=== PATIENT | female | born 1990 | race African-American/Black ===

== ENCOUNTER 2016-06-18 22:49 | Observation (INO) | payer MEDICAID ==
[~2016-06-18] VITALS: Ht 162.6 cm; Wt 54.4 kg
[~2016-06-18 22:49] MED LIST: TRAM100T14 PO
[2016-06-18] MEDS ORDERED: PREN-88 PO (23:37)
[2016-06-18] MEDS ORDERED: ACETAMINOPHEN 325MG TABLET PO NR (23:45)
[2016-06-19 00:55] LABS: CLARITY URINE TURBID (CLEAR); COLOR URINE YELLOW (YELLOW); GLUCOSE URINE NEGATIVE (NEGATIVE); KETONES URINE 1+ (NEGATIVE); LEUKOCYTE ESTERASE URINE 2+ (NEGATIVE); NITRITE URINE NEGATIVE (NEGATIVE); OCCULT BLOOD URINE NEGATIVE (NEGATIVE); PROTEIN URINE NEGATIVE (NEGATIVE); SPECIFIC GRAVITY URINE 1.013 (1.005-1.030)
[2016-06-19 01:17] LABS: *AMPHETAMINES SCREEN URINE NEGATIVE (NEGATIVE); *BARBITURATES SCREEN URINE NEGATIVE (NEGATIVE); *BENZODIAZEPINES SCREEN URINE NEGATIVE (NEGATIVE); *COCAINE SCREEN URINE NEGATIVE (NEGATIVE); CANNABINOID URINE SCREEN NEGATIVE (NEGATIVE); ECSTASY MDMA SCREEN URINE NEGATIVE (NEGATIVE); METHADONE URINE SCREEN NEGATIVE (NEGATIVE); OPIATES URINE SCREEN NEGATIVE (NEGATIVE); PHENCYCLIDINE URINE SCREEN NEGATIVE (NEGATIVE)
[2016-06-19 01:18] LABS: SQUAMOUS EPITHELIAL CELL URINE FEW /lpf (RARE/1+)
[2016-06-19 01:20] LABS: RBC URINE 0-2 /hpf (0-2)
[2016-06-19 01:21] LABS: BACTERIA URINE 2+
== END 2016-06-19 01:10 | disposition home or self-care (01) ==
LOC: L&D 22:49
PROVIDERS: ADMIT Obstetrics & Gynecology; ATTEND Obstetrics & Gynecology
DX: O26.893 Other specified pregnancy related conditions, third trimester (principal); R10.9 Unspecified abdominal pain; M79.604 Pain in right leg; Z3A.31 31 weeks gestation of pregnancy
CPT/HCPCS: 76805; 76818; 80305; 81001; 99281; G0378

== ENCOUNTER 2020-09-05 00:38 | Emergency (ER) | payer MEDICAID ==
[~2020-09-05] VITALS: Ht 162.6 cm; Wt 54.0 kg
[~2020-09-05 00:38] MED LIST changes: +PREN-88 PO; -TRAM100T14 PO; +TRAM100T34 PO
[2020-09-05] MEDS ORDERED: ACETAMINOPHEN 325MG TABLET PO ONE (01:15)
[2020-09-05 01:40] VITALS: BP 136/80
== END 2020-09-05 01:44 | disposition home or self-care (01) ==
LOC: ER 00:38
DX: J06.9 Acute upper respiratory infection, unspecified (principal); J45.909 Unspecified asthma, uncomplicated; F12.10 Cannabis abuse, uncomplicated; Z20.822 Contact with and (suspected) exposure to COVID-19; Z88.0 Allergy status to penicillin; Z88.1 Allergy status to other antibiotic agents
CPT/HCPCS: 99283; C9803; U0003; U0005

== ENCOUNTER 2022-01-16 04:41 | Emergency (ER) | payer MEDICAID ==
[~2022-01-16] VITALS: Ht 170.2 cm; Wt 75.0 kg
[2022-01-16 04:42] VITALS: BP 108/70
== END 2022-01-16 04:53 | disposition left against medical advice (07) ==
LOC: ER 04:41
DX: Z53.21 Procedure and treatment not carried out due to patient leaving prior to being seen by health care provider (principal); F41.9 Anxiety disorder, unspecified; Z98.890 Other specified postprocedural states

== ENCOUNTER 2022-05-13 19:53 | Emergency (ER) | payer MEDICAID ==
[~2022-05-13] VITALS: Ht 154.9 cm; Wt 58.4 kg
[2022-05-13 20:50] VITALS: BP 120/86
[2022-05-13] MEDS ORDERED: ACETAMINOPHEN 325MG TABLET PO PRN (22:45)
== END 2022-05-14 01:02 | disposition left against medical advice (07) ==
LOC: ER 19:53
DX: Z53.21 Procedure and treatment not carried out due to patient leaving prior to being seen by health care provider (principal)